=== PATIENT | female | born 1980 | race Hispanic/Latino ===

== ENCOUNTER 2018-02-15 17:29 | Day surgery (SDC) | payer BC ==
[~2018-02-15] VITALS: Ht 157.5 cm; Wt 72.9 kg
[~2018-02-15 17:29] MED LIST: ATARAX,VISTARIL25 MG PO; BACTRIM,SEPT1 TABLET PO; FIORICET 50-301 EACH PO; FLEXERIL10 MG PO; MEDROL DOSEPAK4 MG PO; MOTRIN600 MG PO; MOTRIN800 MG PO; PERCOCET 5/31 TABLET PO; PHENERGAN-CODE120 ML PO; PHENERGAN25 MG PR; PROMETHAZINE HC25 M1 PO; TYLENOL WITH C1 EACH PO; ZOFRAN4 MG PO
[2018-02-15 17:56] LABS: APPEARANCE CLEAR ((CLEAR)); BILIRUBIN NEGATIVE; BLOOD MODERATE; COLOR AMBER ((YELLOW)); GLUCOSE (STRIP) NEGATIVE; KETONES 20; LEUKOCYTES SMALL; NITRITE NEGATIVE; PROTEIN (STRIP) 30; SPECIFIC GRAVITY 1.031 (1.000-1.030)
[2018-02-15 18:09] LABS: HEMATOCRIT 36.4 % (36.0-46.0); HEMOGLOBIN 12.7 G/DL (11.9-15.5); MCH 24.4 PG (29.0-34.0); MCHC 34.9 G/DL (30.0-36.0); PLATELET COUNT 283 K/uL (156-360); RBC DIS.WIDTH-CV 16.4 % (11.8-14.6); RBC DIS.WIDTH-SD 41.6 % (39-53); WHITE BLOOD COUNT 15.8 K/uL (4.1-10.2)
[2018-02-15 18:14] LABS: ALBUMIN 4.4 g/dL (3.2-4.8)
[2018-02-15 18:15] LABS: CHLORIDE 104 mEq/L (99-109); POTASSIUM 3.4 mEq/L (3.7-5.4); SODIUM 140 mEq/L (136-147)
[2018-02-15 18:17] LABS: GLUCOSE 107 mg/dL (70-99); TOTAL PROTEIN 8.5 g/dL (6.4-8.3)
[2018-02-15 18:19] LABS: TOTAL BILIRUBIN 1.8 mg/dL (0.0-1.0)
[2018-02-15 18:20] LABS: ALKALINE PHOSPHATASE 75 IU/L (3-129)
[2018-02-15 18:20] LABS: RED BLOOD CELLS 0-5 /HPF (0-5)
[2018-02-15 18:21] LABS: CREATININE 0.7 mg/dL (0.6-1.3); GFR ESTIMATE (CALCULATED) > 59 mL/min/
[2018-02-15 18:21] LABS: BACTERIA 1+ /HPF; EPITHELIAL CELLS 2+ /HPF; MUCUS 2+ /LPF; UCUL ADDED? YES
[2018-02-15 18:22] LABS: AST (GOT) 16 IU/L (2-34); UREA NITROGEN (BUN) 13 mg/dL (9-23)
[2018-02-15 18:24] LABS: ALT (GPT) 10 IU/L (3-49)
[2018-02-15 18:30] LABS: QUANTITATIVE HCG < 4.0 MIU/ML
[2018-02-15 21:01] LABS: DIRECT BILIRUBIN 0.6 mg/dL (0.0-0.3); LIPASE 5 U/L (1.0-51.0)
[2018-02-15 22:38] LABS: BASOPHIL (%) 0.2 % (0-1); EOSINOPHIL (%) 0.1 % (0-5); IMMATURE GRANULOCYTE (%) 0.5 % (0.0-0.7); LYMPHOCYTE (%) 12.7 % (15-42); MONOCYTE (%) 6.5 % (3-12); NEUTROPHIL COUNT 12.4 K/uL (1.8-6.4)
[2018-02-15] MEDS ORDERED: ADULT ASPIRIN81 MG PO (23:00)
[2018-02-15] MEDS ORDERED: IRON325 M1 PO (23:00)
[2018-02-15] MEDS ORDERED: ACYCLOVIR800 MG PO (23:00)
[2018-02-15] MEDS ORDERED: ERGOCALCIF50000 UNIT PO (23:00)
[2018-02-15] MEDS ORDERED: SKELAXIN800 MG PO (23:01)
[2018-02-15] MEDS ORDERED: CYANOCOBAL1000 MCG/2 IM (23:01)
[2018-02-15] MEDS ORDERED: IBUPROFEN800 MG PO (23:01)
[2018-02-16 01:39] VITALS: BP 117/61
[2018-02-16 04:21] VITALS: BP 123/65
[2018-02-16 08:07] VITALS: BP 127/73
[2018-02-16] MEDS ORDERED: HYDROCODON-ACE1 EAC7 PO (09:17)
== END 2018-02-16 10:25 | disposition home or self-care (01) ==
LOC: EME 17:29 → EXP 17:29 → SDC 23:26 → EXP 23:26 → 2SOUTH 02-16 00:39 → ENRESERV 02-16 01:04 → 2EAST 02-16 01:36
PROC: 0DTJ4ZZ Resection of Appendix, Percutaneous Endoscopic Approach (ICD-10-PCS; principal; 2018-02-16)
DX: K35.80 Unspecified acute appendicitis (principal); R11.2 Nausea with vomiting, unspecified; F12.90 Cannabis use, unspecified, uncomplicated; D57.3 Sickle-cell trait; R16.0 Hepatomegaly, not elsewhere classified; Z87.891 Personal history of nicotine dependence; Z79.82 Long term (current) use of aspirin
CPT/HCPCS: 74177; 80053; 81003; 82248; 83690; 84702; 85025; 85027; 87086; 88304; 99281; 99285; G0378; J0330; J0500; J1100; J1885; J2250; J2405; J2710; J3010; J7030; J7643; S0020; S0074

== ENCOUNTER 2018-05-23 06:51 | Day surgery (SDC) | payer BC ==
[~2018-05-23] VITALS: Ht 157.5 cm; Wt 72.5 kg
[~2018-05-23 06:51] MED LIST changes: +ACYCLOVIR800 MG PO; +ADULT ASPIRIN81 MG PO; +CYANOCOBAL1000 MCG/2 IM; +ERGOCALCIF50000 UNIT PO; +HYDROCODON-ACE1 EAC7 PO; +IBUPROFEN800 MG PO; +IRON325 M1 PO; +SKELAXIN800 MG PO
[2018-05-23 07:17] VITALS: BP 117/61
[2018-05-23 08:03] LABS: BASOPHIL (%) 0.6 % (0-1); EOSINOPHIL (%) 2.4 % (0-5); EOSINOPHIL COUNT 0.2 K/uL (0-0.3); HEMATOCRIT 33.8 % (36.0-46.0); HEMOGLOBIN 11.8 G/DL (11.9-15.5); IMMATURE GRANULOCYTE (%) 0.3 % (0.0-0.7); LYMPHOCYTE (%) 23.8 % (15-42); LYMPHOCYTE COUNT 1.6 K/uL (1.0-2.8); MCH 24.7 PG (29.0-34.0); MCHC 34.9 G/DL (30.0-36.0); MCV 70.9 FL (83-99); MONOCYTE (%) 7.1 % (3-12); MONOCYTE COUNT 0.5 K/uL (0-0.8); NEUTROPHIL (%) 65.8 % (45-76); NEUTROPHIL COUNT 4.4 K/uL (1.8-6.4); PLATELET COUNT 244 K/uL (156-360); RBC DIS.WIDTH-CV 15.3 % (11.8-14.6); RBC DIS.WIDTH-SD 38.9 % (39-53); RED BLOOD COUNT 4.77 M/uL (3.80-5.20); WHITE BLOOD COUNT 6.6 K/uL (4.1-10.2)
[2018-05-23 11:24] VITALS: BP 164/78
[2018-05-23 12:04] VITALS: BP 159/71
[2018-05-23 12:05] VITALS: BP 155/71
== END 2018-05-23 12:13 | disposition home or self-care (01) ==
LOC: SDC 06:51
PROVIDERS: Obstetrics & Gynecology
DX: T83.32XA Displacement of intrauterine contraceptive device, initial encounter (principal); L91.8 Other hypertrophic disorders of the skin; Z79.82 Long term (current) use of aspirin; Z87.891 Personal history of nicotine dependence
CPT/HCPCS: 81025; 85025; 86850; 86900; 86901; J1100; J1170; J1885; J2250; J2405; J3010